=== PATIENT | male | born 1980 | race Caucasian/White ===

== ENCOUNTER 2024-07-08 16:21 | Outpatient (CLI) | payer BC, SELFPAY ==
--- NOTE | ~2024-07-08 | XR_ITS ---
HISTORY: Thoracolumbar pain COMPARISON: None TECHNIQUE: 2 views of the lumbar spine were performed FINDINGS: No acute fracture is identified. No compression fracture is appreciated. Trace degenerative disease with facet arthropathy is noted. Overlying soft tissues are unremarkable. Bone mineralization is age-appropriate. IMPRESSION: Trace degenerative disease, without acute fracture. Reviewed, dictated and finalized at location A. LATION OPERATOR
--- NOTE | ~2024-07-08 | XR_ITS ---
HISTORY: Thoracolumbar pain COMPARISON: None TECHNIQUE: 3 views of the thoracic spine were performed FINDINGS: No acute compression fracture is present. Bone mineralization is age-appropriate. No significant degenerative disease. IMPRESSION: Unremarkable radiographic evaluation of the thoracic spine, as detailed above. Reviewed, dictated and finalized at location A. COPY EXAMINER
== END 2024-07-08 16:22 | disposition home or self-care (01) ==
LOC: CHSIMG 16:28
PROVIDERS: PCP Internal Medicine; Visit Provider Internal Medicine
DX: M54.50 Low back pain, unspecified (principal)
CPT/HCPCS: 72072; 72100

== ENCOUNTER 2024-07-09 07:23 | Outpatient (CLI) | payer BC, SELFPAY ==
[2024-07-09 07:42] LABS: Add Urine Microscopic? NO; Appearance Urine Clear (Clear); Basophils Absolute Auto 0.03 K/mm3 (0.00-0.10); Basophils Percent Auto 0.6 % (0.0-1.0); Bilirubin Urine Negative (Negative); Blood Urine Negative (Negative); Color Urine Light Yellow (Yellow); Eosinophils Absolute Auto 0.09 K/mm3 (0.02-0.50); Eosinophils Percent Auto 1.8 % (1.0-6.0); Glucose Urine UA Negative (Negative); Hemoglobin 15.2 g/dL (14.0-18.0); Immature Granulocyte Absolute 0.04 K/mm3 (0.00-0.00); Immature Granulocyte Percent A 0.8 % (0.0-0.0); Ketones Urine Negative (Negative); Leukocyte Esterase Ur Negative (Negative); Lymphocytes Absolute Auto 1.88 K/mm3 (1.10-4.50); Mean Corpuscular HGB Conc 33.8 g/dL (32-36); Mean Corpuscular Hemoglobin 29.9 pg (27.0-31.0); Mean Corpuscular Volume 88.4 fL (78.0-102.0); Monocytes Absolute Auto 0.48 K/mm3 (0.10-0.90); Monocytes Percent Auto 9.4 % (2.0-11.0); Neutrophils Absolute Auto 2.56 K/mm3 (1.70-7.20); Neutrophils Percent Auto 50.4 % (50.0-70.0); Nitrate Urine Negative (Negative); Platelet Count Result 216 K/mm3 (150-420); Protein Urine Negative (Negative); Red Blood Count 5.09 M/mm3 (4.70-6.10); Red Cell Distribution Width 11.9 % (11.6-14.4); Urobilinogen Urine 0.2 mg/dL (0.2-1.0); White Blood Count 5.1 K/mm3 (4.8-10.8); pH Urine 5.5 (5.0-8.0)
[2024-07-09 08:55] LABS: Alanine Aminotransferase 55 U/L (16-63); Albumin Level 3.8 g/dL (3.4-5.0); Alkaline Phosphatase 71 U/L (46-116); Anion Gap 8 mmol/L (4-12); Aspartate Amino Transferase 34 U/L (15-37); Bilirubin,Total 0.4 mg/dL (0.00-1.00); Blood Urea Nitrogen 14 mg/dL (7-18); Calcium 8.8 mg/dL (8.5-10.1); Carbon Dioxide 29 mmol/L (21-32); Chloride 104 mmol/L (98-108); Cholesterol 225 mg/dL (0-200); Estimated Glomerular Filt Rate > 60; Glucose 99 mg/dL (70-99); HDL Direct 48 mg/dL (40-60); LDL Cholesterol Calculated 159 mg/dL (<130); Osmolality Calculated 292 mOsm/kg (285-295); Potassium 4.4 mmol/L (3.5-5.1); Sodium 141 mmol/L (136-145); Thyroid Stimulating Hormone 1.87 uIU/mL (0.36-3.74); Total Protein 6.7 g/dL (6.4-8.2); Triglycerides 91 mg/dL (0-150)
[2024-07-09 09:01] LABS: CRP < 0.5 mg/dL (0.0-0.9)
== END 2024-07-09 07:24 | disposition home or self-care (01) ==
LOC: CHSLAB 07:24
PROVIDERS: PCP Internal Medicine; Visit Provider Internal Medicine
DX: Z00.00 Encounter for general adult medical examination without abnormal findings (principal); M54.50 Low back pain, unspecified
CPT/HCPCS: 36415; 80053; 80061; 81003; 84443; 85025; 86140

== ENCOUNTER 2024-07-29 16:09 | Outpatient (CLI) | payer BC, SELFPAY ==
--- NOTE | ~2024-07-29 | XR_ITS ---
XR elbow LT min 3V Ordering provider: Cecil Jacobs MD History: . L elbow pain X 6 weeks, getting worse, olecranon process . Comparison: None. FINDINGS: BONES: No acute fracture or dislocation. JOINT SPACES: Normal. SOFT TISSUES: Normal. No definite joint effusion. IMPRESSION: No acute osseous abnormality left elbow. Reviewed, dictated and finalized at location A. ACE SUPERVISOR
== END 2024-07-29 16:10 | disposition home or self-care (01) ==
LOC: CHSIMG 16:11
PROVIDERS: PCP Internal Medicine; Visit Provider Internal Medicine
DX: S59.902A Unspecified injury of left elbow, initial encounter (principal)
CPT/HCPCS: 73080

== ENCOUNTER 2024-11-16 11:49 | Outpatient (CLI) | payer BC, SELFPAY ==
--- NOTE | ~2024-11-16 | XR_ITS ---
EXAMINATION:[id number], XR thoracic spine 3V, XR lumbar spine 2-3V DATE: 11/16/2024 12:11 INDICATION: Right-sided neck pain and generalized back pain post fall from ladder TECHNIQUE: Line 1. AP, lateral, lateral swimmers and odontoid views of the cervical spine are provided. 2. AP, lateral and lateral swimmer's views of the thoracic spine were obtained. 3. AP, lateral and coned-down lateral lumbosacral views of the lumbar spine were obtained. COMPARISON: 07/08/2024 FINDINGS: Cervical spine: Alignment is normal. Odontoid is intact. Normal atlantoaxial interval. Vertebral body heights are no rmal. Disc spaces are normal. 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 Otherwise m ild multilevel cervical uncovertebral and facet osteoarthritis. Prevertebral soft tissues are normal. Thoracic spine: Hypoplastic ribs bilaterally at T1 with 7 more cephalad nonrib-bearing cervical segments. Alignment i s normal. Vertebral body heights are normal. Multilevel mild to moderate disc height loss with mid to lower thoracic predominance. No fractures identified. Visualized lungs are clear with no pleural eff usion or pneumothorax. Heart size is normal. Lumbar spine: Bilateral hypoplastic riblets at L1 with for more caudal nonrib-bearing lumbar segments. Alignment is normal. Vertebral body heights are normal. Disc heights are normal. Lucency related to bowel gas pro jecting over unchanged likely old healed fractures at the left transverse processes at L2 and L3. Mul tilevel mild lumbar facet osteoarthritis and mild osteoarthritis at the bilateral sacroiliac joints. Sacral arches are intact. IMPRESSION: 1. Mild to moderate thoracic and minimal cervical and lumbar spondylosis without evident acute osseou s abnormality. Reviewed, dictated and finalized at location B. IMPRESSION: 1. Mild to moderate thoracic and minimal cervical and lumbar spondylosis withou t evident acute osseous abnormality. IMPRESSION: 1. Mild to moderate thoracic and minimal cervical and lumbar spondylosis withou t evident acute osseous abnormality.
--- OUTSIDE RECORDS SUMMARY | 2024-11-16 13:48 | XMS_ITS | Clinical Summary ---
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 Name Role Phone Unavailable Primary Care Provider Unavailabl e Social History Tobacco Use Types Packs/Day Years Used Date Smoking Tobacco: Never Assessed Sex and Gender Information Value Date Recorded Sex Assigned at Not on file Legal Sex Male 8:05 PM CDT Gender Identity Not on file Sexual Orientation Not on file Plan of Treatment Health Maintenance Due Date Last Done Comments Annual Physical 1983 Hepatitis C 1998 DTaP, Tdap and Td Vaccines ( 1 - Tdap) 1999 Hepatitis B Vaccines (1 of 3 - 19+ 3-dose series) 1999 COVID-19 Vaccine (2023-2 5 season) 2024 Influenza Adult (#1) 2024 HPV Vaccines Aged Out No longer eligi ble based on patient's age to complete this topic Meningococcal B Vaccine Aged Out No l onger eligible based on patient's age to complete this topic Meningococcal Vaccine Aged Out No dixie sherley eligible based on patient's age to complete this topic Pneumococcal Vaccine: Pediat rics (0 to 5 Years) and At-Risk Patients (6 to 64 Years) Aged Out No longer eligible b ased on patient's age to complete this topic RSV Immunizations Under 20 Months Aged Out No longer eligible based on patient's age to complete this topic
== END 2024-11-16 11:50 | disposition home or self-care (01) ==
LOC: CHSIMG 11:51
PROVIDERS: PCP Internal Medicine; Visit Provider Internal Medicine
DX: M54.50 Low back pain, unspecified (principal); M54.2 Cervicalgia; M43.06 Spondylolysis, lumbar region; M43.02 Spondylolysis, cervical region; M43.04 Spondylolysis, thoracic region
CPT/HCPCS: 72040; 72072; 72100